=== PATIENT | female | born 1955 | race Caucasian/White ===

== ENCOUNTER 2018-01-06 18:41 | Emergency (ER) | payer SELFPAY ==
[~2018-01-06] VITALS: Ht 167.6 cm; Wt 68.0 kg
[2018-01-06 19:00] VITALS: BP 184/87
== END 2018-01-06 21:03 | disposition home or self-care (01) ==
LOC: ER 18:41
DX: S63.502A Unspecified sprain of left wrist, initial encounter (principal); I10 Essential (primary) hypertension; V43.52XA Car driver injured in collision with other type car in traffic accident, initial encounter; Y93.89 Activity, other specified; Y99.8 Other external cause status; Y92.410 Unspecified street and highway as the place of occurrence of the external cause
CPT/HCPCS: 29125; 73110

== ENCOUNTER 2021-03-17 19:31 | Emergency (ER) | payer MEDICARE, MEDICAID ==
[~2021-03-17] VITALS: Ht 167.6 cm; Wt 81.6 kg
[2021-03-17] MEDS ORDERED: amLODIPine BESYLATE 5 MG TAB PO ONE (20:00)
[2021-03-17] MEDS ORDERED: AMLO-489 PO (20:07)
[2021-03-17 21:40] VITALS: BP 186/86
== END 2021-03-17 22:02 | disposition home or self-care (01) ==
LOC: ER 19:35
DX: I10 Essential (primary) hypertension (principal); R51.9 Headache, unspecified
CPT/HCPCS: 93005